=== PATIENT | female | born 1950 | race Caucasian/White ===

== ENCOUNTER → 2018-07-23 | Emergency (ER) | payer OTHER ==
[~2018-07-23] VITALS: Ht 160 cm; Wt 81.7 kg
[~2018-07-23] MED LIST: AZITHROMYCIN 2250 MG PO; CORTISPORIN OTI10 ML OTIC
[2018-07-23 13:35] VITALS: BP 211/99
== END ==
LOC: M.ERS 12:20
DX: H66.91 Otitis media, unspecified, right ear (principal); H60.91 Unspecified otitis externa, right ear; I10 Essential (primary) hypertension; Z88.7 Allergy status to serum and vaccine; Z88.8 Allergy status to other drugs, medicaments and biological substances